=== PATIENT | male | born 1980 | race Caucasian/White ===

== ENCOUNTER 2018-11-19 15:01 | Inpatient (IN) | payer BC ==
[2018-11-19 16:22] LABS: Basophils % (A) 0 %; Eosinophils # (A) 0.2 k/uL (0-0.7); Eosinophils % (A) 1 %; HCT 40.5 % (39.0-53.0); HGB 14.1 gm/dL (13.0-17.5); Lymphocytes # (A) 1.3 k/uL (1.0-4.8); Lymphocytes % (A) 8 %; MCH 30.2 pg (25.0-35.0); MCHC 34.8 g/dL (31.0-37.0); MCV 86.7 fL (80.0-100.0); Mean Platelet Volume 7.2; Monocytes # (A) 0.8 k/uL (0-1.0); Monocytes % (A) 5 %; Neutrophils # (A) 13.2 k/uL (1.3-7.7); Neutrophils % (A) 85 %; Platelet Count 220 k/uL (150-450); RBC 4.68 m/uL (4.30-5.90); RDW 13.2 % (11.5-15.5); WBC 15.6 k/uL (3.8-10.6)
[2018-11-19 16:32] LABS: Appearance,Urine Clear (Clear); Bilirubin,Urine Negative (Negative); Blood,Urine Negative (Negative); Color,Urine Light Yellow; Glucose,Urine (UA) Negative (Negative); Ketones,Urine 1+ (Negative); Leukocyte Esterase,Urine Negative (Negative); Nitrite,Urine Negative (Negative); Protein,Urine Negative (Negative); Specific Gravity,Urine 1.009 (1.001-1.035); Urobilinogen,Urine <2.0 mg/dL (<2.0)
[2018-11-19 16:37] LABS: ALT 32 U/L (21-72); AST 23 U/L (17-59); Alkaline Phosphatase 56 U/L (38-126); Amylase <30 U/L (30-110); Anion Gap 12 mmol/L; Blood Urea Nitrogen 25 mg/dL (9-20); Calcium 9.2 mg/dL (8.4-10.2); Carbon Dioxide 20 mmol/L (22-30); Chloride 104 mmol/L (98-107); Glucose 103 mg/dL (74-99); Lipase 56 U/L (23-300); Potassium 3.8 mmol/L (3.5-5.1); Sodium 136 mmol/L (137-145); Total Bilirubin 0.9 mg/dL (0.2-1.3); Total Protein 6.1 g/dL (6.3-8.2)
[2018-11-19] MEDS ORDERED: MORPHINE SULFATE 2 MG/ML SYRINGE IVP STA (17:05)
--- NOTE | 2018-11-19 17:28 | ED ---
Abdominal Pain HPI <Felix Rios - Last Filed: 11/19/18 19:02> - General Source: patient Mode of arrival: ambulatory Limitations: no limitations <Jessica Foster - Last Filed: 11/19/18 19:16> - General Chief Complaint: Abdominal Pain Stated Complaint: diverticulitis - History of Present Illness Initial Comments: 38-year-old male presenting today for chief complaint of left lower abdominal pain. Patient has history of diverticulitis. He states this feels identical to previous flares of diverticulitis in the past. Patient states that this began Sunday increasing in severity since. Patient denies fever or chills night sweats, bloody stools melena vomiting or hematemesis. Patient states he has felt occasional nausea. Denies chest pain dyspnea dyspnea on exertion. Patient appears uncomfortable upon history taking. Remaining review of systems negative, Patient denies any recent back pain, abdominal pain, nausea or vomiting, numbness or tingling, dysuria or hematuria, constipation or diarrhea, headaches or visual changes, or any other complaints. (Jessica Foster) - Related Data Home Medications Medication Instructions Recorded Confirmed Albuterol Sulfate [Proair Hfa] 2 puff INHALATION RT-Q6H PRN 11/19/18 11/19/18 Azelastine HCl [Astepro] 1 spray EA NOSTRIL DAILY 11/19/18 11/19/18 Budesonide-Formot 160-4.5 Mcg 2 puff INHALATION RT-BID 11/19/18 11/19/18 [Symbicort 160-4.5 Mcg Inhaler] Ipratropium-Albuterol Nebulize 3 ml INHALATION RT-Q6H PRN 11/19/18 11/19/18 [Duoneb 0.5 mg-3 mg/3 ml Soln] Melatonin 5 mg PO HS PRN 11/19/18 11/19/18 Montelukast [Singulair] 10 mg PO DAILY 11/19/18 11/19/18 Multivitamins, Thera [Multivitamin 1 tab PO DAILY 11/19/18 11/19/18 (formulary)] Tiotropium 18 Mcg/Puff [Spiriva] 1 puff INHALATION RT-DAILY 11/19/18 11/19/18 Allergies Allergy/AdvReac Type Severity Reaction Status Date / Time No Known Allergies Allergy Verified 11/19/18 15:15 Review of Systems ROS Other: All systems not noted in ROS Statement are negative. <GabrielFelix - Last Filed: 11/19/18 19:02> ROS Other: All systems not noted in ROS Statement are negative. <Jessica Foster - Last Filed: 11/19/18 19:16> ROS Statement: Those systems with pertinent positive or pertinent negative responses have been documented in the HPI. Past Medical History Past Medical History: No Reported History, Asthma Additional Past Medical History / Comment(s): diverticulitis History of Any Multi-Drug Resistant Organisms: None Reported Past Surgical History: Appendectomy Past Psychological History: No Psychological Hx Reported Smoking Status: Never smoker Past Alcohol Use History: Occasional Past Drug Use History: None Reported <Jessica Foster - Last Filed: 11/19/18 19:16> General Exam Limitations: no limitations <Jessica Foster - Last Filed: 11/19/18 19:16> - General Exam Comments Initial Comments: General: The patient is awake and alert, in no distress, the patient does appear uncomfortable. Eye: Pupils are equal, round and reactive to light, extra-ocular movements are intact. No nystagmus. There is normal conjunctiva bilaterally. No signs of icterus. Ears, nose, mouth and throat: There are moist mucous membranes and no oral lesions. Neck: The neck is supple, there is no tenderness or JVD. Cardiovascular: There is a regular rate and rhythm. No murmur, rub or gallop is appreciated. Respiratory: Lungs are clear to auscultation, respirations are non-labored, breath sounds are equal. No wheezes, stridor, rales, or rhonchi. Gastrointestinal: Soft, non-distended, tender to both light and deep palpation of the left lower quadrant without masses or organomegaly noted. Her is rebound tenderness. No rigidity or guarding present. No CVA tenderness. Bowel sounds are unremarkable. Musculoskeletal: Normal ROM, no tenderness. Strength 5/5. Sensation intact. Radial pulses equal bilaterally 2+. Neurological: A&O x 3. CN II-XII intact, There are no obvious motor or sensory deficits. Coordination appears grossly intact. Speech is normal. Skin: Skin is warm and dry and no rashes or lesions are noted. Psychiatric: Cooperative, appropriate mood & affect, normal judgment. (Jessica Foster) Course <Felix Rios - Last Filed: 11/19/18 19:02> Vital Signs 11/19/18 11/19/18 11/19/18 15:11 17:17 18:31 Temperature 99.4 F Pulse Rate 111 H 89 93 Respiratory 18 20 18 Rate Blood Pressure 139/76 140/81 139/83 O2 Sat by Pulse 96 99 99 Oximetry - Reevaluation(s) Reevaluation #1: 11/19/18 19:03 PA supervision: I proceeded a [id number] evaluation of the patient. He's had abdominal pain for the past several days of lower quadrant radiating to his flank. He does have a history of diverticulitis the past. No fevers but some sweats states he has episodes where he feels hot but this is not unusual for him. No nausea vomiting diarrhea or other symptoms no trauma reported. He did have elevation of his white blood cell count with a left shift he also had evidence a CT findings of diverticulitis with a small air bubbles possibly around the site. No free air. I did discuss case with Dr. Caraballo patient will be admitted with surgical consultation. (Felix Rios) Medical Decision Making - Lab Data Result diagrams: 11/19/18 16:10 11/19/18 16:10 <Felix Rios - Last Filed: 11/19/18 19:02> - Lab Data Result diagrams: 11/19/18 16:10 11/19/18 16:10 <Jessica Foster - Last Filed: 11/19/18 19:16> - Medical Decision Making 38-year-old male past medical history of diverticulitis presented for left lower abdominal pain. Patient appears uncomfortable on examination. Both tenderness to light and deep palpation of the left lower quadrant. Some rebound tenderness noted. CT revealed a moderate diverticulitis with small erythematous concern for microperforation. No pneumoperitoneum. No free fluid in the abdomen. There is infiltrate changes on the renal fascia. As well as this appeared to be a uncomplicated reticulitis patient will be admitted for IV antibiotics and surgical consultation-as recommended by attending provider. Pt was started on zosyn and clear liquid diet. She received IV fluids as well as pain medications in the emergency department. Patient was evaluated in person by attending provider Dr. Rios who is agreeable patient plan of care and adm ission after reviewing CT imaging studies and performing history. Patient is agreeable to admission at this time, all questions were answered to the best of my ability. Patient transferred to the floor in stable condition appear well (KristinJessica Xiong) - Lab Data Lab Results 11/19/18 11/19/18 11/19/18 Range/Units 16:10 16:10 16:10 WBC 15.6 H (3.8-10.6) k/uL RBC 4.68 (4.30-5.90) m/uL Hgb 14.1 (13.0-17.5) gm/dL Hct 40.5 (39.0-53.0) % MCV 86.7 (80.0-100.0) fL MCH 30.2 (25.0-35.0) pg MCHC 34.8 (31.0-37.0) g/dL RDW 13.2 (11.5-15.5) % Plt Count 220 (150-450) k/uL Neutrophils % 85 % Lymphocytes % 8 % Monocytes % 5 % Eosinophils % 1 % Basophils % 0 % Neutrophils # 13.2 H (1.3-7.7) k/uL Lymphocytes # 1.3 (1.0-4.8) k/uL Monocytes # 0.8 (0-1.0) k/uL Eosinophils # 0.2 (0-0.7) k/uL Basophils # 0.0 (0-0.2) k/uL Sodium 136 L (137-145) mmol/L Potassium 3.8 (3.5-5.1) mmol/L Chloride 104 (98-107) mmol/L Carbon Dioxide 20 L (22-30) mmol/L Anion Gap 12 mmol/L BUN 25 H (9-20) mg/dL Creatinine 0.87 (0.66-1.25) mg/dL Est GFR (CKD-EPI)AfAm >90 (>60 ml/min/1.73 sqM) Est GFR (CKD-EPI)NonAf >90 (>60 ml/min/1.73 sqM) Glucose 103 H (74-99) mg/dL Plasma Lactic Acid Tristen 0.6 L (0.7-2.0) mmol/L Calcium 9.2 (8.4-10.2) mg/dL Total Bilirubin 0.9 (0.2-1.3) mg/dL AST 23 (17-59) U/L ALT 32 (21-72) U/L Alkaline Phosphatase 56 (38-126) U/L Total Protein 6.1 L (6.3-8.2) g/dL Albumin 4.0 (3.5-5.0) g/dL Amylase <30 L (30-110) U/L Lipase 56 (23-300) U/L Urine Color Urine Appearance (Clear) Urine pH (5.0-8.0) Ur Specific [place] (1.001-1.035) Urine Protein (Negative) Urine Glucose (UA) (Negative) Urine Ketones (Negative) Urine Blood (Negative) Urine Nitrite (Negative) Urine Bilirubin (Negative) Urine Urobilinogen (<2.0) mg/dL Ur Leukocyte Esterase (Negative) 11/19/18 Range/Units 16:20 WBC (3.8-10.6) k/uL RBC (4.30-5.90) m/uL Hgb (13.0-17.5) gm/dL Hct (39.0-53.0) % MCV (80.0-100.0) fL MCH (25.0-35.0) pg MCHC (31.0-37.0) g/dL RDW (11.5-15.5) % Plt Count (150-450) k/uL Neutrophils % % Lymphocytes % % Monocytes % % Eosinophils % % Basophils % % Neutrophils # (1.3-7.7) k/uL Lymphocytes # (1.0-4.8) k/uL Monocytes # (0-1.0) k/uL Eosinophils # (0-0.7) k/uL Basophils # (0-0.2) k/uL Sodium (137-145) mmol/L Potassium (3.5-5.1) mmol/L Chloride (98-107) mmol/L Carbon Dioxide (22-30) mmol/L Anion Gap mmol/L BUN (9-20) mg/dL Creatinine (0.66-1.25) mg/dL Est GFR (CKD-EPI)AfAm (>60 ml/min/1.73 sqM) Est GFR (CKD-EPI)NonAf (>60 ml/min/1.73 sqM) Glucose (74-99) mg/dL Plasma Lactic Acid Tristen (0.7-2.0) mmol/L Calcium (8.4-10.2) mg/dL Total Bilirubin (0.2-1.3) mg/dL AST (17-59) U/L ALT (21-72) U/L Alkaline Phosphatase (38-126) U/L Total Protein (6.3-8.2) g/dL Albumin (3.5-5.0) g/dL Amylase (30-110) U/L Lipase (23-300) U/L Urine Color Light Yellow Urine Appearance Clear (Clear) Urine pH 6.0 (5.0-8.0) Ur Specific [place] 1.009 (1.001-1.035) Urine Protein Negative (Negative) Urine Glucose (UA) Negative (Negative) Urine Ketones 1+ H (Negative) Urine Blood Negative (Negative) Urine Nitrite Negative (Negative) Urine Bilirubin Negative (Negative) Urine Urobilinogen <2.0 (<2.0) mg/dL Ur Leukocyte Esterase Negative (Negative) Disposition <Felix Rios - Last Filed: 11/19/18 19:02> Is patient prescribed a controlled substance at d/c from ED?: No Time of Disposition: 18:44 Decision to Admit Reason: Admit from EC Decision Date: 11/19/18 Decision Time: 18:44 <Jessica Foster - Last Filed: 11/19/18 19:16> Clinical Impression: Diverticulitis, Intractable abdominal pain, Leukocytosis Disposition: ADMITTED IP TO THIS HOSP Condition: Stable
[2018-11-19] MEDS ORDERED: PIPERACILLIN-TAZOBACTAM 3.375 GM in SODIUM CHLORIDE 0.9% 100 ML IVPB STA (17:50)
--- NOTE | 2018-11-19 18:26 | CT ---
EXAMINATION TYPE: CT abdomen pelvis wo con DATE OF EXAM: 11/19/2018 COMPARISON: None HISTORY: Left flank pain CT DLP: 821.1 mGycm Automated exposure control for dose reduction was used. TECHNIQUE: Helical acquisition of images was performed from the lung bases through the pelvis. FINDINGS: Within the limitations of noncontrast CT the following observations are made: LUNG BASES: No significant abnormality is appreciated. LIVER/GB: No significant abnormality is appreciated. PANCREAS: No significant abnormality is seen. SPLEEN: No significant abnormality is seen. ADRENALS: No significant abnormality is seen. KIDNEYS: No significant abnormality is seen. PERITONEAL CAVITY: No pneumoperitoneum or peritoneal fluid. RETROPERITONEAL ADENOPATHY: None visualized REPRODUCTIVE ORGANS: No significant abnormality is seen URINARY BLADDER: No significant abnormality is seen. PELVIC ADENOPATHY: None visualized. OSSEOUS STRUCTURES: No significant abnormality is seen. BOWEL: There is a focus of moderate-marked inflammation surrounding diverticula of the proximal most descending colon, with associated irregular thickening of the left renal fascia and left lateral con al fascia. Tiny extraluminal gas bubbles are seen circumferential to this segment of colon, confined to the extraperitoneal compartment. Again, there is no pneumoperitoneum. There are no abnormal fluid collections. There are numerous diverticula throughout the descending and sigmoid colon. IMPRESSION: MODERATE-MARKED PROXIMAL DESCENDING COLON DIVERTICULITIS, DISCUSSED.
[2018-11-19] MEDS ORDERED: KETOROLAC 30 MG/ML 1 ML VIAL IVP STA (18:37)
[2018-11-19] MEDS: MORPHINE SULFATE 4 MG/ML SYRINGE IVP PRN ×2 (18:44→22:36)
[2018-11-19] MEDS ORDERED: NALOXONE 0.4 MG/ML 1 ML VIAL IV PRN (18:44)
[2018-11-19 20:12] VITALS: BMI 32.3
[2018-11-19] MEDS: SODIUM CHLORIDE 0.9% 1,000 ML IV SCH (22:28)
--- NOTE | 2018-11-19 22:35 | P.HPIM ---
History of Present Illness H&P Date: 11/19/18 The patient is a 38 yo M with a PMH of diverticulosis (multiple prior bouts of diverticulitis), and asthma presented to the Ed for 3 days of gradually worsening LLQ abdominal pain. The patient reports that the pain is very similar to that of his previous bouts of diverticulitis and gradually worsened. At time of interview, he reported the pain as a 3-4/10, improved from a 7/10 prior to admission, non-radiating, sharp in nature, w/ no alleviating or exacerbating factors. He reports being diagnosed w/ diverticulosis 6 years ago. He reported chills though denied fever, blood stools, melena, dysuria, diarrhea, or vomiting. He also denied dysuria, increased urinary frequency, or hematuria. The patient underwent an extensive evaluation in the ED w/ WBC count 15.6, BUN 25, Cr 0.87, Abd/pelvis CT revealing moderate to marked proximal descending colon diverticulitis, and venous lactic acid 0.6. The patient received IV Zosyn in the ED and was admitted for further management. Review of Systems Pertinent positives and negatives as discussed in HPI, a complete review of systems was performed and all other systems are negative. Past Medical History Past Medical History: No Reported History, Asthma Additional Past Medical History / Comment(s): diverticulitis History of Any Multi-Drug Resistant Organisms: None Reported Past Surgical History: Appendectomy Past Anesthesia/Blood Transfusion Reactions: No Reported Reaction Past Psychological History: No Psychological Hx Reported Smoking Status: Never smoker Past Alcohol Use History: Occasional Past Drug Use History: None Reported Medications and Allergies Home Medications Medication Instructions Recorded Confirmed Type Albuterol Sulfate [Proair Hfa] 2 puff INHALATION RT-Q6H PRN 11/19/18 11/19/18 History Azelastine HCl [Astepro] 1 spray EA NOSTRIL DAILY 11/19/18 11/19/18 History Budesonide-Formot 160-4.5 Mcg 2 puff INHALATION RT-BID 11/19/18 11/19/18 History [Symbicort 160-4.5 Mcg Inhaler] Ipratropium-Albuterol Nebulize 3 ml INHALATION RT-Q6H PRN 11/19/18 11/19/18 History [Duoneb 0.5 mg-3 mg/3 ml Soln] Melatonin 5 mg PO HS PRN 11/19/18 11/19/18 History Montelukast [Singulair] 10 mg PO DAILY 11/19/18 11/19/18 History Multivitamins, Thera [Multivitamin 1 tab PO DAILY 11/19/18 11/19/18 History (formulary)] Tiotropium 18 Mcg/Puff [Spiriva] 1 puff INHALATION RT-DAILY 11/19/18 11/19/18 History Allergies Allergy/AdvReac Type Severity Reaction Status Date / Time No Known Allergies Allergy Verified 11/19/18 15:15 Physical Exam Vitals: Vital Signs Temp Pulse Pulse Resp BP BP Pulse Ox 11/19/18 19:51 99.3 F 101 H 16 146/89 95 11/19/18 19:22 99.4 F 93 18 139/83 99 11/19/18 18:31 93 18 139/83 99 11/19/18 17:17 89 20 140/81 99 11/19/18 15:11 99.4 F 111 H 18 139/76 96 Intake and Output 11/19/18 11/19/18 11/19/18 06:59 14:59 22:59 Intake Total 120 Balance 120 Intake: Amount of Fluid Infused ( 120 ml) Other: Voiding Method Toilet Weight 107.955 kg General: non toxic, no distress, appears at stated age, obese Derm: no unusual rashes/lesions no unusual ecchymoses, warm, dry Head: atraumatic, normocephalic, symmetric Eyes: EOMI, no lid lag, anicteric sclera, pupils equal round reactive to light ENT: Nose and ears atraumatic, no thrush, no pharyngeal erythema Neck: No thyromegaly, no cervical lymphadenopathy, trachea midline, supple Mouth: no lip lesion, mucus membranes moist Cardiovascular: S1S2 reg, no murmur, positive posterior tibial pulse bilateral, no edema, capillary refill less than 2 seconds Lungs: CTA bilateral, no rhonchi, no rales , no accessory muscle use Abdominal: soft, left lower quadrant tenderness to palpation, with some guarding, no rebound, normal bowel sounds, no overlying skin abnormalities Ext: no gross muscle atrophy, muscle strength 5 out of 5 in all 4 extremities grossly, no contractures, Neuro: CN II-XI grossly intact, light touch intact all 4 extremities, finger to nose within normal limits, Psych: Alert, oriented, appropriate affect Results CBC & Chem 7: 11/19/18 16:10 11/19/18 16:10 Labs: Abnormal Lab Results - Last 24 Hours (Table) 11/19/18 11/19/18 11/19/18 Range/Units 16:10 16:10 16:10 WBC 15.6 H (3.8-10.6) k/uL Neutrophils # 13.2 H (1.3-7.7) k/uL Sodium 136 L (137-145) mmol/L Carbon Dioxide 20 L (22-30) mmol/L BUN 25 H (9-20) mg/dL Glucose 103 H (74-99) mg/dL Plasma Lactic Acid Tristen 0.6 L (0.7-2.0) mmol/L Total Protein 6.1 L (6.3-8.2) g/dL Amylase <30 L (30-110) U/L Urine Ketones (Negative) 11/19/18 Range/Units 16:20 WBC (3.8-10.6) k/uL Neutrophils # (1.3-7.7) k/uL Sodium (137-145) mmol/L Carbon Dioxide (22-30) mmol/L BUN (9-20) mg/dL Glucose (74-99) mg/dL Plasma Lactic Acid Tristen (0.7-2.0) mmol/L Total Protein (6.3-8.2) g/dL Amylase (30-110) U/L Urine Ketones 1+ H (Negative) Thrombosis Risk Factor Assmnt - Choose All That Apply Any of the Below Risk Factors Present?: Yes Each Factor Represents 1 point: Obesity (BMI >25) Other Risk Factors: No Other congenital or acquired thrombophilia - If yes, enter type in comment: No Thrombosis Risk Factor Assessment Total Risk Factor Score: 1 Thrombosis Risk Factor Assessment Level: Low Risk Assessment and Plan Plan: Sepsis secondary to diverticulitis -Continue with Zosyn -IV fluids -Clear liquid diet -GI consult -Pain control w/ Morphine prn Asthma -Resume home medications DVT prophylaxis -Heparin The patient is admitted with an anticipated greater than 2 midnight stay for evaluation of sepsis due to diverticulitis. CODE STATUS: Full code Discussed with: Patient Anticipated discharge date: 11/21/[address]: Home A total of 35 minutes was spent on the care of this complex patient more than 50% of the time was spent in counseling and care coordination.
[2018-11-19] MEDS ORDERED: ALBUTEROL NEBULIZED 2.5 MG/3 ML INHALATION PRN (23:09)
[2018-11-20] MEDS ORDERED: KETOROLAC 30 MG/ML 1 ML VIAL IVP STA (00:40)
[2018-11-20] MEDS: HEPARIN SODIUM,PORCINE 5,000 UNIT/ML 1 ML VIAL SQ SCH ×4 (00:47→23:29)
[2018-11-20] MEDS: MORPHINE SULFATE 2 MG/ML SYRINGE IVP PRN ×3 (02:23→10:12)
[2018-11-20] MEDS: PIPERACILLIN-TAZOBACTAM 3.375 GM in SODIUM CHLORIDE 0.9% 100 ML IVPB SCH ×3 (02:23→17:15)
[2018-11-20] MEDS: IPRATROPIUM 0.5 MG/2.5 ML NEBU INHALATION SCH ×5 (07:22→20:36)
[2018-11-20] MEDS: SYMBICORT 160-4.5 MCG INHALER INHALATION SCH ×2 (07:22→20:35)
[2018-11-20 07:35] LABS: HCT 40.7 % (39.0-53.0); HGB 13.6 gm/dL (13.0-17.5); MCH 29.4 pg (25.0-35.0); MCHC 33.5 g/dL (31.0-37.0); MCV 87.9 fL (80.0-100.0); Mean Platelet Volume 7.2; Platelet Count 176 k/uL (150-450); RBC 4.63 m/uL (4.30-5.90); RDW 12.6 % (11.5-15.5); WBC 11.4 k/uL (3.8-10.6)
[2018-11-20] MEDS: AZELASTINE 137MCG/SPRAY EA NOSTRIL SCH (07:36)
[2018-11-20] MEDS: MONTELUKAST 10 MG TAB PO SCH (07:36)
[2018-11-20] MEDS: SODIUM CHLORIDE 0.9% 1,000 ML IV SCH ×2 (07:36→17:15)
[2018-11-20 07:47] LABS: ALT 33 U/L (21-72); AST 19 U/L (17-59); Albumin 3.6 g/dL (3.5-5.0); Alkaline Phosphatase 49 U/L (38-126); Anion Gap 8 mmol/L; Blood Urea Nitrogen 17 mg/dL (9-20); Calcium 8.7 mg/dL (8.4-10.2); Carbon Dioxide 23 mmol/L (22-30); Chloride 106 mmol/L (98-107); Glucose 90 mg/dL (74-99); Sodium 137 mmol/L (137-145); Total Protein 5.8 g/dL (6.3-8.2)
[2018-11-20] MEDS ORDERED: MORPHINE SULFATE 2 MG/ML SYRINGE IVP STA (10:36)
--- NOTE | 2018-11-20 11:03 | P.GSCN ---
<Linda Davalos - Last Filed: 11/20/18 10:59> History of Present Illness Consult date: 11/20/18 Reason for Consult: Diverticulitis Requesting physician: Jessica Foster History of present illness: CHIEF COMPLAINT: Abdominal pain HISTORY OF PRESENT ILLNESS: 38-year-old male who resides in [facility] who is currently in [place] secondary to work. Patient states he began having abdominal pain on Sunday night. He reports a history of diverticulosis for the past 6-7 years with his last bout of diverticulitis occurring 18 months ago. Patient states the pain continued to increase and he presented to the emergency room for further evaluation. Patient currently tolerating clear liquid diet. Reports mild nausea secondary to pain medications. Denies emesis. Denies diarrhea. Reports taking MiraLAX secondary to feelings of constipation. PAST MEDICAL HISTORY: See list. PAST SURGICAL HISTORY: See list. SOCIAL HISTORY: No illicit drug use. REVIEW OF SYSTEMS: CONSTITUTIONAL: Denies fever or chills. HEENT: Denies blurred vision, vision changes, or eye pain. Denies hemoptysis CARDIOVASCULAR: Denies chest pain or pressure. RESPIRATORY: No shortness of breath. GASTROINTESTINAL: Refer to HPI for pertinent findings HEMATOLOGIC: Denies bleeding disorders. GENITOURINARY: Denies any blood in urine. SKIN: Denies pruitis. Denies rash. PHYSICAL EXAM: VITAL SIGNS: Reviewed. GENERAL: Well-developed in no acute distress. HEENT: No sclera icterus. Extraocular movements grossly intact. Moist buccal mucosa. Head is atraumatic, normocephalic. ABDOMEN: Soft. Nondistended. Tenderness upon palpation of left lower quadrant. NEUROLOGIC: Alert and oriented. Cranial nerves II through XII grossly intact. ASSESSMENT: 1. Acute diverticulitis PLAN: Patient reports his flight home is scheduled for today at 1800. Patient would like to be discharged today if possible on oral antibiotics. Will discuss with Dr. Griffin regarding possibility of discharge today due to patients situation. In the meantime, continue IV antibiotics and clear liquid diet. Nurse practitioner note has been reviewed by physician. Signing provider agrees with the documented findings, assessment, and plan of care. Past Medical History Past Medical History: No Reported History, Asthma Additional Past Medical History / Comment(s): diverticulitis History of Any Multi-Drug Resistant Organisms: None Reported Past Surgical History: Appendectomy Past Anesthesia/Blood Transfusion Reactions: No Reported Reaction Past Psychological History: No Psychological Hx Reported Smoking Status: Never smoker Past Alcohol Use History: Occasional Past Drug Use History: None Reported Medications and Allergies Home Medications Medication Instructions Recorded Confirmed Type Albuterol Sulfate [Proair Hfa] 2 puff INHALATION RT-Q6H PRN 11/19/18 11/19/18 History Azelastine HCl [Astepro] 1 spray EA NOSTRIL DAILY 11/19/18 11/19/18 History Budesonide-Formot 160-4.5 Mcg 2 puff INHALATION RT-BID 11/19/18 11/19/18 History [Symbicort 160-4.5 Mcg Inhaler] Ipratropium-Albuterol Nebulize 3 ml INHALATION RT-Q6H PRN 11/19/18 11/19/18 History [Duoneb 0.5 mg-3 mg/3 ml Soln] Melatonin 5 mg PO HS PRN 11/19/18 11/19/18 History Montelukast [Singulair] 10 mg PO DAILY 11/19/18 11/19/18 History Multivitamins, Thera [Multivitamin 1 tab PO DAILY 11/19/18 11/19/18 History (formulary)] Tiotropium 18 Mcg/Puff [Spiriva] 1 puff INHALATION RT-DAILY 11/19/18 11/19/18 History Allergies Allergy/AdvReac Type Severity Reaction Status Date / Time No Known Allergies Allergy Verified 11/19/18 15:15 Surgical - Exam Vital Signs Temp Pulse Resp BP Pulse Ox 99.4 F 111 H 18 139/76 96 11/19/18 15:11 11/19/18 15:11 11/19/18 15:11 11/19/18 15:11 11/19/18 15:11 Results - Labs 11/20/18 07:18 11/20/18 07:18 Abnormal Lab Results - Last 24 Hours (Table) 11/19/18 11/19/18 11/19/18 Range/Units 16:10 16:10 16:10 WBC 15.6 H (3.8-10.6) k/uL Neutrophils # 13.2 H (1.3-7.7) k/uL Sodium 136 L (137-145) mmol/L Carbon Dioxide 20 L (22-30) mmol/L BUN 25 H (9-20) mg/dL Glucose 103 H (74-99) mg/dL Plasma Lactic Acid Tristen 0.6 L (0.7-2.0) mmol/L Total Protein 6.1 L (6.3-8.2) g/dL Amylase <30 L (30-110) U/L Urine Ketones (Negative) 11/19/18 11/20/18 11/20/18 Range/Units 16: 07:18 07:18 WBC 11.4 H (3.8-10.6) k/uL Neutrophils # (1.3-7.7) k/uL Sodium (137-145) mmol/L Carbon Dioxide (22-30) mmol/L BUN (9-20) mg/dL Glucose (74-99) mg/dL Plasma Lactic Acid Tristen (0.7-2.0) mmol/L Total Protein 5.8 L (6.3-8.2) g/dL Amylase (30-110) U/L Urine Ketones 1+ H (Negative) Diabetes panel 11/19/18 11/20/18 Range/Units 16:10 07:18 Sodium 136 L 137 (137-145) mmol/L Potassium 3.8 4.0 (3.5-5.1) mmol/L Chloride 104 106 (98-107) mmol/L Carbon Dioxide 20 L 23 (22-30) mmol/L BUN 25 H 17 (9-20) mg/dL Creatinine 0.87 1.08 (0.66-1.25) mg/dL Glucose 103 H 90 (74-99) mg/dL Calcium 9.2 8.7 (8.4-10.2) mg/dL AST 23 19 (17-59) U/L ALT 32 33 (21-72) U/L Alkaline Phosphatase 56 49 (38-126) U/L Total Protein 6.1 L 5.8 L (6.3-8.2) g/dL Albumin 4.0 3.6 (3.5-5.0) g/dL Calcium panel 11/19/18 11/20/18 Range/Units 16:10 07:18 Calcium 9.2 8.7 (8.4-10.2) mg/dL Albumin 4.0 3.6 (3.5-5.0) g/dL Pituitary panel 11/19/18 11/20/18 Range/Units 16:10 07:18 Sodium 136 L 137 (137-145) mmol/L Potassium 3.8 4.0 (3.5-5.1) mmol/L Chloride 104 106 (98-107) mmol/L Carbon Dioxide 20 L 23 (22-30) mmol/L BUN 25 H 17 (9-20) mg/dL Creatinine 0.87 1.08 (0.66-1.25) mg/dL Glucose 103 H 90 (74-99) mg/dL Calcium 9.2 8.7 (8.4-10.2) mg/dL Adrenal panel 11/19/18 11/20/18 Range/Units 16:10 07:18 Sodium 136 L 137 (137-145) mmol/L Potassium 3.8 4.0 (3.5-5.1) mmol/L Chloride 104 106 (98-107) mmol/L Carbon Dioxide 20 L 23 (22-30) mmol/L BUN 25 H 17 (9-20) mg/dL Creatinine 0.87 1.08 (0.66-1.25) mg/dL Glucose 103 H 90 (74-99) mg/dL Calcium 9.2 8.7 (8.4-10.2) mg/dL Total Bilirubin 0.9 1.0 (0.2-1.3) mg/dL AST 23 19 (17-59) U/L ALT 32 33 (21-72) U/L Alkaline Phosphatase 56 49 (38-126) U/L Total Protein 6.1 L 5.8 L (6.3-8.2) g/dL Albumin 4.0 3.6 (3.5-5.0) g/dL <Fercho Griffin - Last Filed: 11/20/18 20:46> History of Present Illness History of present illness: As above. Patient admitted with acute diverticulitis and CAT scan findings demonstrating pericolonic air. Patient remains tender on examination. He states he does feel better than he did 2 days ago however. Continue broad- spectrum antibiotics. Clear liquid diet only for now. We'll follow with you. Surgical - Exam Vital Signs Temp Pulse Resp BP Pulse Ox 99.4 F 111 H 18 139/76 96 11/19/18 15:11 11/19/18 15:11 11/19/18 15:11 11/19/18 15:11 11/19/18 15:11 Results - Labs 11/20/18 07:18 11/20/18 07:18 Abnormal Lab Results - Last 24 Hours (Table) 11/20/18 11/20/18 Range/Units 07:18 07:18 WBC 11.4 H (3.8-10.6) k/uL Total Protein 5.8 L (6.3-8.2) g/dL Diabetes panel 11/20/18 Range/Units 07:18 Sodium 137 (137-145) mmol/L Potassium 4.0 (3.5-5.1) mmol/L Chloride 106 (98-107) mmol/L Carbon Dioxide 23 (22-30) mmol/L BUN 17 (9-20) mg/dL Creatinine 1.08 (0.66-1.25) mg/dL Glucose 90 (74-99) mg/dL Calcium 8.7 (8.4-10.2) mg/dL AST 19 (17-59) U/L ALT 33 (21-72) U/L Alkaline Phosphatase 49 (38-126) U/L Total Protein 5.8 L (6.3-8.2) g/dL Albumin 3.6 (3.5-5.0) g/dL Calcium panel 11/20/18 Range/Units 07:18 Calcium 8.7 (8.4-10.2) mg/dL Albumin 3.6 (3.5-5.0) g/dL Pituitary panel 11/20/18 Range/Units 07:18 Sodium 137 (137-145) mmol/L Potassium 4.0 (3.5-5.1) mmol/L Chloride 106 (98-107) mmol/L Carbon Dioxide 23 (22-30) mmol/L BUN 17 (9-20) mg/dL Creatinine 1.08 (0.66-1.25) mg/dL Glucose 90 (74-99) mg/dL Calcium 8.7 (8.4-10.2) mg/dL Adrenal panel 11/20/18 Range/Units 07:18 Sodium 137 (137-145) mmol/L Potassium 4.0 (3.5-5.1) mmol/L Chloride 106 (98-107) mmol/L Carbon Dioxide 23 (22-30) mmol/L BUN 17 (9-20) mg/dL Creatinine 1.08 (0.66-1.25) mg/dL Glucose 90 (74-99) mg/dL Calcium 8.7 (8.4-10.2) mg/dL Total Bilirubin 1.0 (0.2-1.3) mg/dL AST 19 (17-59) U/L ALT 33 (21-72) U/L Alkaline Phosphatase 49 (38-126) U/L Total Protein 5.8 L (6.3-8.2) g/dL Albumin 3.6 (3.5-5.0) g/dL
--- NOTE | 2018-11-20 11:32 | P.PN ---
Subjective Progress Note Date: 11/20/18 Principal diagnosis: Follow-up for acute diverticulitis Patient was seen and examined continues to be nothing by mouth reports a lot of pain poorly controlled left lower quadrant, denies any GI bleeding or diarrhea. Denies any nausea or vomiting. No fevers or chills overnight. Objective - Vital Signs Vital signs: Vital Signs Temp 99.2 F 11/20/18 07:00 Pulse 90 11/20/18 07:00 Resp 18 11/20/18 07:00 BP 134/69 11/20/18 07:00 Pulse Ox 95 11/20/18 07:00 Intake & Output 11/19/18 11/20/18 11/20/18 18:59 06:59 18:59 Intake Total 1420 240 Balance 1420 240 Weight 107.955 kg Intake: Amount of Fluid Infused ( 120 ml) Intake, IV Titration 1300 Amount Piperacillin-Tazobactam 3 100 .375 gm In Sodium Chloride 0.9% 100 ml @ 25 mls/hr IVPB Q8H [facility] Rx#: [id number] Sodium Chloride 0.9% 1, 1200 000 ml @ 100 mls/hr IV . Q10H [facility] Rx#:[id number] Oral 240 Other: Voiding Method Toilet # Voids 2 - Exam Constitutional: vital signs stable, patient showing signs of mild distress due to pain, pleasant, conversant Lungs: Clear to auscultation bilaterally, clear to percussion, normal respiratory effort no use of accessory muscles Cardiovascular: Regular rate and rhythm, no murmurs, no gallops, no rubs, no peripheral edema Gastrointestinal: Soft, tenderness palpation over the left lower quadrant with voluntary guarding , bowel sounds positive, no abdominal wall hernias Extremities: No digital cyanosis or clubbing, peripheral pulses palpable and equal over bilateral radial arteries and dorsalis pedis artery, no calf muscle tenderness Psych: Alert, oriented to place, person and time, appropriate affect, intact judgment - Labs CBC & Chem 7: 11/20/18 07:18 11/20/18 07:18 Labs: Abnormal Lab Results - Last 24 Hours (Table) 11/19/18 11/19/18 11/19/18 Range/Units 16:10 16:10 16:10 WBC 15.6 H (3.8-10.6) k/uL Neutrophils # 13.2 H (1.3-7.7) k/uL Sodium 136 L (137-145) mmol/L Carbon Dioxide 20 L (22-30) mmol/L BUN 25 H (9-20) mg/dL Glucose 103 H (74-99) mg/dL Plasma Lactic Acid Tristen 0.6 L (0.7-2.0) mmol/L Total Protein 6.1 L (6.3-8.2) g/dL Amylase <30 L (30-110) U/L Urine Ketones (Negative) 11/19/18 11/20/18 11/20/18 Range/Units 16:20 07:18 07:18 WBC 11.4 H (3.8-10.6) k/uL Neutrophils # (1.3-7.7) k/uL Sodium (137-145) mmol/L Carbon Dioxide (22-30) mmol/L BUN (9-20) mg/dL Glucose (74-99) mg/dL Plasma Lactic Acid Tristen (0.7-2.0) mmol/L Total Protein 5.8 L (6.3-8.2) g/dL Amylase (30-110) U/L Urine Ketones 1+ H (Negative) Assessment and Plan Assessment: 38-year-old male with history of asthma and recurrent diverticulitis. [place] he reports pain started on Sunday 3 days ago, he is visiting for work however he felt that the pain was getting worse yesterday and decided come to the hospital. In the ER he was found to have acute diverticulitis of the descending colon along with sepsis and admitted for further care. 11/20 he is reporting persistent pain requiring frequent painkillers, still feeling nauseated he continues to be nothing by mouth on IV fluids. Plan: Sepsis secondary to acute diverticulitis, recurrent Nothing by mouth IV fluid hydration Pain control with opiates IV antibiotics with Zosyn Surgery consult Supportive care History of asthma Continue maintenance preventative therapy with inhalers DVT prophylaxis heparin subcu 3 times a day Anticipated discharge in 24-48 hours Patient is from out of state, I suggested patient to reschedule this flight to finish proper therapy here, especially in light of severe pain requiring frequent pain killers. patient was OK with this plan upon discharge , will continue with PO antibiotics for 7-10 days
[2018-11-20] MEDS: MORPHINE SULFATE 4 MG/ML SYRINGE IVP PRN ×5 (13:45→23:29)
[2018-11-21] MEDS: SODIUM CHLORIDE 0.9% 1,000 ML IV SCH ×3 (00:13→14:47)
[2018-11-21] MEDS: MORPHINE SULFATE 4 MG/ML SYRINGE IVP PRN ×7 (01:44→15:23)
[2018-11-21] MEDS: PIPERACILLIN-TAZOBACTAM 3.375 GM in SODIUM CHLORIDE 0.9% 100 ML IVPB SCH ×3 (01:45→17:43)
[2018-11-21] MEDS: SYMBICORT 160-4.5 MCG INHALER INHALATION SCH ×2 (07:50→19:33)
[2018-11-21] MEDS: IPRATROPIUM 0.5 MG/2.5 ML NEBU INHALATION SCH ×4 (07:50→19:33)
[2018-11-21] MEDS: HEPARIN SODIUM,PORCINE 5,000 UNIT/ML 1 ML VIAL SQ SCH ×2 (08:42→17:53)
[2018-11-21 09:06] LABS: Basophils % (A) 0 %; Eosinophils % (A) 0 %; HCT 40.6 % (39.0-53.0); HGB 13.2 gm/dL (13.0-17.5); Lymphocytes # (A) 1.2 k/uL (1.0-4.8); Lymphocytes % (A) 12 %; MCH 28.9 pg (25.0-35.0); MCHC 32.6 g/dL (31.0-37.0); MCV 88.5 fL (80.0-100.0); Mean Platelet Volume 7.3; Monocytes # (A) 0.7 k/uL (0-1.0); Monocytes % (A) 7 %; Neutrophils # (A) 8.4 k/uL (1.3-7.7); Neutrophils % (A) 80 %; Platelet Count 211 k/uL (150-450); RBC 4.59 m/uL (4.30-5.90); RDW 13.7 % (11.5-15.5); WBC 10.5 k/uL (3.8-10.6)
[2018-11-21 09:33] LABS: Chloride 103 mmol/L (98-107)
[2018-11-21 09:35] LABS: ALT 24 U/L (21-72); AST 15 U/L (17-59); Albumin 3.6 g/dL (3.5-5.0); Alkaline Phosphatase 53 U/L (38-126); Anion Gap 8 mmol/L; Blood Urea Nitrogen 10 mg/dL (9-20); Calcium 8.8 mg/dL (8.4-10.2); Carbon Dioxide 25 mmol/L (22-30); Glucose 110 mg/dL (74-99); Potassium 3.8 mmol/L (3.5-5.1); Sodium 136 mmol/L (137-145); Total Bilirubin 0.8 mg/dL (0.2-1.3); Total Protein 5.8 g/dL (6.3-8.2)
[2018-11-21] MEDS ORDERED: ACETAMINOPHEN TAB 325 MG TAB PO PRN (10:07)
--- NOTE | 2018-11-21 10:07 | P.PN ---
<Linda Davalos - Last Filed: 11/21/18 10:00> Subjective Progress Note Date: 11/21/18 CHIEF COMPLAINT: Abdominal pain HISTORY OF PRESENT ILLNESS: Patient examined at the bedside this morning. He reports improvement in abdominal pain. Currently rating 4/10 in comparison to 7/10 yesterday. Denies nausea or vomiting. Passing flatus. No BM. Tolerating clear liquid diet. Requesting diet advancement. WBC 10.5. Afebrile. PHYSICAL EXAM: VITAL SIGNS: Reviewed. GENERAL: Well-developed in no acute distress. HEENT: No sclera icterus. Extraocular movements grossly intact. Moist buccal mucosa. Head is atraumatic, normocephalic. ABDOMEN: Soft. Nondistended. Tenderness upon palpation of left lower quadrant, although improved from yesterday. NEUROLOGIC: Alert and oriented. Cranial nerves II through XII grossly intact. ASSESSMENT: 1. Acute diverticulitis PLAN: Continue IV antibiotics Advance diet to full liquid Anticipate discharge tomorrow if patient continues to improve. Patient has rescheduled flight home to [place] for tomorrow. Nurse practitioner note has been reviewed by physician. Signing provider agrees with the documented findings, assessment, and plan of care. Objective - Vital Signs Vital signs: Vital Signs Temp 98.2 F 11/21/18 07:00 Pulse 74 11/21/18 07:00 Resp 16 11/21/18 07:00 BP 128/79 11/21/18 07:00 Pulse Ox 94 L 11/21/18 07:00 Intake & Output 11/20/18 11/21/18 11/21/18 18:59 06:59 18:59 Intake Total 720 2280 Balance 720 2280 Intake: Intake, IV Titration 1500 Amount Sodium Chloride 0.9% 1, 1500 000 ml @ 150 mls/hr IV . Q6H40M [facility] Rx#:[id number] Oral 720 780 Other: # Voids 3 3 - Labs CBC & Chem 7: 11/21/18 08:09 11/21/18 08:09 Labs: Abnormal Lab Results - Last 24 Hours (Table) 11/21/18 11/21/18 Range/Units 08:09 08:09 Neutrophils # 8.4 H (1.3-7.7) k/uL Sodium 136 L (137-145) mmol/L Glucose 110 H (74-99) mg/dL AST 15 L (17-59) U/L Total Protein 5.8 L (6.3-8.2) g/dL <Fercho Griffin - Last Filed: 11/21/18 18:50> Subjective As above. Patient's pain is improved he states. Tolerating full liquid diet. Remains on antibiotics. White blood cell count normal. He is afebrile. If pain further improved tomorrow we'll plan discharge with outpatient follow-up in [place] by his primary care physician. Objective - Vital Signs Vital signs: Vital Signs Temp 97.6 F 11/21/18 13:25 Pulse 100 11/21/18 13:25 Resp 20 11/21/18 13:25 BP 134/87 11/21/18 13:25 Pulse Ox 100 11/21/18 13:25 Intake & Output 11/20/18 11/21/18 11/21/18 18:59 06:59 18:59 Intake Total 720 2280 Balance 720 2280 Intake: Intake, IV Titration 1500 Amount Sodium Chloride 0.9% 1, 1500 000 ml @ 150 mls/hr IV . Q6H40M [facility] Rx#:[id number] Oral 720 780 Other: Voiding Method Toilet # Voids 3 3 1 - Labs CBC & Chem 7: 11/21/18 08:09 11/21/18 08:09 Labs: Abnormal Lab Results - Last 24 Hours (Table) 11/21/18 11/21/18 Range/Units 08:09 08:09 Neutrophils # 8.4 H (1.3-7.7) k/uL Sodium 136 L (137-145) mmol/L Glucose 110 H (74-99) mg/dL AST 15 L (17-59) U/L Total Protein 5.8 L (6.3-8.2) g/dL
[2018-11-21] MEDS: MONTELUKAST 10 MG TAB PO SCH (10:11)
[2018-11-21] MEDS: AZELASTINE 137MCG/SPRAY EA NOSTRIL SCH (10:12)
--- NOTE | 2018-11-21 14:52 | P.PN ---
Subjective Progress Note Date: 11/21/18 Principal diagnosis: Follow-up for acute diverticulitis Patient was seen and examined patient tolerating clear liquids, he reports better control of his abdominal pain which is improving compared to yesterday. Denies any fevers or chills overnight denies any diarrhea denies any GI bleeding. Denies any nausea vomiting Objective - Vital Signs Vital signs: Vital Signs Temp 97.6 F 11/21/18 13:25 Pulse 100 11/21/18 13:25 Resp 20 11/21/18 13:25 BP 134/87 11/21/18 13:25 Pulse Ox 100 11/21/18 13:25 Intake & Output 11/20/18 11/21/18 11/21/18 18:59 06:59 18:59 Intake Total 720 2280 Balance 720 2280 Intake: Intake, IV Titration 1500 Amount Sodium Chloride 0.9% 1, 1500 000 ml @ 150 mls/hr IV . Q6H40M [facility] Rx#:[id number] Oral 720 780 Other: Voiding Method Toilet # Voids 3 3 1 - Exam Constitutional: vital signs stable, patient showing signs of mild distress due to pain, pleasant, conversant Lungs: Clear to auscultation bilaterally, clear to percussion, normal respiratory effort no use of accessory muscles Cardiovascular: Regular rate and rhythm, no murmurs, no gallops, no rubs, no peripheral edema Gastrointestinal: Soft, diffusely tender to palpation no guarding no rebound tenderness or rigidity , bowel sounds positive, no abdominal wall hernias Extremities: No digital cyanosis or clubbing, peripheral pulses palpable and equal over bilateral radial arteries and dorsalis pedis artery, no calf muscle tenderness Psych: Alert, oriented to place, person and time, appropriate affect, intact judgment - Labs CBC & Chem 7: 11/21/18 08:09 11/21/18 08:09 Labs: Abnormal Lab Results - Last 24 Hours (Table) 11/21/18 11/21/18 Range/Units 08:09 08:09 Neutrophils # 8.4 H (1.3-7.7) k/uL Sodium 136 L (137-145) mmol/L Glucose 110 H (74-99) mg/dL AST 15 L (17-59) U/L Total Protein 5.8 L (6.3-8.2) g/dL Assessment and Plan Assessment: 38-year-old male with history of asthma and recurrent diverticulitis. [place] he reports pain started on Sunday 3 days ago, he is visiting for work however he felt that the pain was getting worse yesterday and decided come to the hospital. In the ER he was found to have acute diverticulitis of the descending colon along with sepsis and admitted for fu rther care. 11/20 he is reporting persistent pain requiring frequent painkillers, still feeling nauseated he continues to be nothing by mouth on IV fluids. 11/21 patient seems to be improving overall no fevers overnight white count has resolved. Patient tolerating clear liquid diet will advance to full liquid. Surgery had no plans for immediate surgical intervention at this time. Patient to continue on IV antibiotics. Plan is for discharge in a.m. on a combination of Cipro and Flagyl for 10 days. Plan: Sepsis secondary to acute diverticulitis, recurrent Advance diet as tolerated IV fluid hydration Pain control with opiates IV antibiotics with Zosyn Surgery consult, no recommendations for immediate surgical intervention at this time Supportive care History of asthma Continue maintenance preventative therapy with inhalers DVT prophylaxis heparin subcu 3 times a day Patient scheduled flight for tomorrow in the afternoon., If patient continues to show signs of improvement and tolerates by mouth intake he probably can be discharged tomorrow morning on a combination of Cipro and Flagyl for a 10 day course. Patient encouraged to increase fiber in his diet.
[2018-11-21] MEDS: HYDROcodone/APAP 5-325MG 1 EACH TAB PO PRN ×2 (17:42→21:24)
[2018-11-22] MEDS: HEPARIN SODIUM,PORCINE 5,000 UNIT/ML 1 ML VIAL SQ SCH ×2 (01:13→08:39)
[2018-11-22] MEDS: PIPERACILLIN-TAZOBACTAM 3.375 GM in SODIUM CHLORIDE 0.9% 100 ML IVPB SCH (01:13)
[2018-11-22 07:34] VITALS: BP 130/78; PULSE 77; TEMP 98.5
--- NOTE | 2018-11-22 08:04 | P.DS ---
Providers Date of admission: 11/19/18 19:02 Expected date of discharge: 11/22/18 Attending physician: Sina Caraballo MD Consults: 11/19/18 18:44 Consult Physician Routine Consulting Provider: Fercho Griffin Consult Reason/Comments: Complicated diverticulitis Do you want consulting provider notified?: Yes, Notify in am Primary care physician: Stated None Hospital Course: The patient is a 38 yo M with a PMH of diverticulosis (multiple prior bouts of diverticulitis), and asthma presented to the Ed for 3 days of gradually worsening LLQ abdominal pain. The patient reports that the pain is very similar to that of his previous bouts of diverticulitis and gradually worsened. At time of interview, he reported the pain as a 3-4/10, improved from a 7/10 prior to admission, non-radiating, sharp in nature, w/ no alleviating or exacerbating factors. He reports being diagnosed w/ diverticulosis 6 years ago. He reported chills though denied fever, blood stools, melena, dysuria, diarrhea, or vomiting. He also denied dysuria, increased urinary frequency, or hematuria. The patient underwent an extensive evaluation in the ED w/ WBC count 15.6, BUN 25, Cr 0.87, Abd/pelvis CT revealing moderate to marked proximal descending colon diverticulitis, and venous lactic acid 0.6. The patient received IV Zosyn in the ED and was admitted for further management. Patient showed considerable improvement on day 2 of admission. His leukocytosis decreased from 15.6-11.4. He was afebrile throughout hospitalization. Patient was given Tylenol, [place] and morphine for pain management. He started on normal saline at 150 mL/h. IV Zosyn was transitioned to Flagyl and ciprofloxacin by mouth on discharge. General surgery was consulted and recommended no surgical management. Patient was seen and examined prior to discharge. No acute events overnight. Tolerating full liquid diet well. He denies any fever or chills. Abdominal pain greatly improved since admission, localized left lower quadrant, 3 out of 10 in severity. Looking for to going home to [place] around 3 PM. General: [no distress], [appears at stated age] Derm: [warm], [dry] Head: [atraumatic], [normocephalic], [symmetric] Eyes: [EOMI], [no lid lag], [anicteric sclera] Mouth: [no lip lesion], [mucus membranes moist] Cardiovascular: [S1S2 reg], [no murmur], [positive DP pulse bilateral], Lungs: [CTA bilateral], [no rhonchi, no rales] , [no accessory muscle use] Abdominal: [soft], [tenderness to palpation left lower quadrant without rebound], [no guarding], [no appreciable organomegaly] Ext: [no gross muscle atrophy], [no edema], [no contractures] Neuro: [no focal neuro deficits] Psych: [Alert], [oriented], [appropriate affect] Assessment and Plan 1. Acute diverticulitis, resolving 2. Asthma, not in exacerbation 1. As seen on CT. Patient is febrile since admission, leukocytosis resolved yesterday. Will transition from IV Zosyn to Flagyl and ciprofloxacin by mouth. Discontinue IVF as tolerating diet. Pain management with Tylenol and [place] at home. 2. Not in acute exacerbation. Albuterol neb as needed for shortness of breath and wheezing. Continue Symbicort. Advised of warning symptoms and when to seek medical attention (worsening abdominal pain, intractable nausea and vomiting, fever and chills). Will DC home today with close follow-up with PCP in 1-2 days. Pertinent Studies: Abdominal CT Patient Condition at Discharge: Stable Plan - Discharge Summary Discharge Rx Participant: Yes New Discharge Prescriptions: New Ciprofloxacin HCl [Cipro] 500 mg PO BID #20 tab metroNIDAZOLE [Flagyl] 500 mg PO TID #30 tab HYDROcodone/APAP 5-325MG [[place] 5-325] 1 each PO Q4HR PRN #18 tab PRN Reason: MODERATE Pain Continue Multivitamins, Thera [Multivitamin (formulary)] 1 tab PO DAILY Melatonin 5 mg PO HS PRN PRN Reason: Insomnia Ipratropium-Albuterol Nebulize [Duoneb 0.5 mg-3 mg/3 ml Soln] 3 ml INHALATION RT-Q6H PRN PRN Reason: Shortness Of Breath Albuterol Sulfate [Proair Hfa] 2 puff INHALATION RT-Q6H PRN PRN Reason: Shortness Of Breath Tiotropium 18 Mcg/Puff [Spiriva] 1 puff INHALATION RT-DAILY Montelukast [Singulair] 10 mg PO DAILY Budesonide-Formot 160-4.5 Mcg [Symbicort 160-4.5 Mcg Inhaler] 2 puff INHALATION RT-BID Azelastine HCl [Astepro] 1 spray EA NOSTRIL DAILY Discharge Medication List Albuterol Sulfate [Proair Hfa] 2 puff INHALATION RT-Q6H PRN 11/19/18 [History] Azelastine HCl [Astepro] 1 spray EA NOSTRIL DAILY 11/19/18 [History] Budesonide-Formot 160-4.5 Mcg [Symbicort 160-4.5 Mcg Inhaler] 2 puff INHALATION RT-BID 11/19/18 [History] Ipratropium-Albuterol Nebulize [Duoneb 0.5 mg-3 mg/3 ml Soln] 3 ml INHALATION RT-Q6H PRN 11/19/18 [History] Melatonin 5 mg PO HS PRN 11/19/18 [History] Montelukast [Singulair] 10 mg PO DAILY 11/19/18 [History] Multivitamins, Thera [Multivitamin (formulary)] 1 tab PO DAILY 11/19/18 [History] Tiotropium 18 Mcg/Puff [Spiriva] 1 puff INHALATION RT-DAILY 11/19/18 [History] Ciprofloxacin HCl [Cipro] 500 mg PO BID #20 tab 11/21/18 [Rx] metroNIDAZOLE [Flagyl] 500 mg PO TID #30 tab 11/21/18 [Rx] HYDROcodone/APAP 5-325MG [[place] 5-325] 1 each PO Q4HR PRN #18 tab 11/22/18 [Rx] Follow up Appointment(s)/Referral(s): None,Stated [Primary Care Provider] - 1-2 days Activity/Diet/Wound Care/Special Instructions: Please follow up with your primary care physician in 1-2 days. Also, please make an appointment with a GI specialist Discharge Disposition: HOME SELF-CARE
[2018-11-22] MEDS: SODIUM CHLORIDE 0.9% 1,000 ML IV SCH (08:39)
[2018-11-22] MEDS: IPRATROPIUM 0.5 MG/2.5 ML NEBU INHALATION SCH (08:40)
[2018-11-22] MEDS: SYMBICORT 160-4.5 MCG INHALER INHALATION SCH (08:40)
[2018-11-22] MEDS: AZELASTINE 137MCG/SPRAY EA NOSTRIL SCH (08:47)
[2018-11-22] MEDS: MONTELUKAST 10 MG TAB PO SCH (08:47)
[2018-11-22 09:31] VITALS: RESP 16
--- NOTE | 2018-11-22 11:01 | P.PN ---
<Linda Davalos Yordy - Last Filed: 11/22/18 10:59> Subjective Progress Note Date: 11/22/18 CHIEF COMPLAINT: Abdominal pain HISTORY OF PRESENT ILLNESS: Patient examined at the bedside this morning. He reports minimal abdominal pain. Tolerating diet. Denies nausea or vomiting. Patient anxious to be discharged today as he has a flight scheduled this a fternoon back to [place]. PHYSICAL EXAM: VITAL SIGNS: Reviewed. GENERAL: Well-developed in no acute distress. HEENT: No sclera icterus. Extraocular movements grossly intact. Moist buccal mucosa. Head is atraumatic, normocephalic. ABDOMEN: Soft. Nondistended. Minimal abdominal tenderness. NEUROLOGIC: Alert and oriented. Cranial nerves II through XII grossly intact. ASSESSMENT: 1. Acute diverticulitis PLAN: Patient stable for discharge from a surgical standpoint. Prescription for Cipro and Flagyl sent to pharmacy. Patient encouraged to follow-up when he returns home to [place] with his primary care physician. Nurse practitioner note has been reviewed by physician. Signing provider agrees with the documented findings, assessment, and plan of care. Objective - Vital Signs Vital signs: Vital Signs Temp 98.5 F 11/22/18 07:00 Pulse 77 11/22/18 07:00 Resp 16 11/22/18 08:00 BP 130/78 11/22/18 07:00 Pulse Ox 99 11/22/18 07:00 Intake & Output 11/21/18 11/22/18 11/22/18 18:59 06:59 18:59 Intake Total 1620 Balance 1620 Intake: Intake, IV Titration 1300 Amount Piperacillin-Tazobactam 3 100 .375 gm In Sodium Chloride 0.9% 100 ml @ 25 mls/hr IVPB Q8H MANOJ Rx#: [id number] Sodium Chloride 0.9% 1, 1200 000 ml @ 150 mls/hr IV . Q6H40M MANOJ Rx#:[id number] Oral 320 Other: Voiding Method Toilet Toilet Toilet # Voids 1 4 1 - Labs CBC & Chem 7: 11/21/18 08:09 11/21/18 08:09 <Fercho Griffin - Last Filed: 11/22/18 12:18> Subjective As above. Patient doing well today. He was discharge prior to my evaluation. Outpatient follow-up with his primary care physician advised. Objective - Vital Signs Vital signs: Vital Signs Temp 98.5 F 11/22/18 07:00 Pulse 77 11/22/18 07:00 Resp 16 11/22/18 08:00 BP 130/78 11/22/18 07:00 Pulse Ox 99 11/22/18 07:00 Intake & Output 11/21/18 11/22/18 11/22/18 18:59 06:59 18:59 Intake Total 1620 Balance 1620 Intake: Intake, IV Titration 1300 Amount Piperacillin-Tazobactam 3 100 .375 gm In Sodium Chloride 0.9% 100 ml @ 25 mls/hr IVPB Q8H MANOJ Rx#: [id number] Sodium Chloride 0.9% 1, 1200 000 ml @ 150 mls/hr IV . Q6H40M MANOJ Rx#:[id number] Oral 320 Other: Voiding Method Toilet Toilet Toilet # Voids 1 4 1 - Labs CBC & Chem 7: 11/21/18 08:09 11/21/18 08:09
== END 2018-11-22 10:16 | disposition home or self-care (01) | DRG 872 ==
LOC: EC 15:01 → 4SSUR 19:02
PROVIDERS: ADMIT Family Medicine; ATTEND Family Medicine
DX: A41.9 Sepsis, unspecified organism (principal); K57.32 Diverticulitis of large intestine without perforation or abscess without bleeding; J45.909 Unspecified asthma, uncomplicated; Z79.51 Long term (current) use of inhaled steroids; Z79.899 Other long term (current) drug therapy; Z90.49 Acquired absence of other specified parts of digestive tract
CPT/HCPCS: 36415; 74176; 80053; 81003; 82150; 83605; 83690; 85025; 85027; 94640; 96365; 96375; 96376; 99285